=== PATIENT | male | born 1995 | race Caucasian/White ===

== ENCOUNTER 2023-12-23 23:03 | Emergency (ER) | payer MEDICAID ==
[~2023-12-23] VITALS: Ht 167.6 cm; Wt 69.9 kg
[2023-12-23 23:18] VITALS: O2SAT 96
[2023-12-23] MEDS ORDERED: LIDOCAINE 2%-EPI 1:100,000 20 ML VIAL ONE (23:54)
[2023-12-24] MEDS: LIDOCAINE 2%-EPI 1:100,000 20 ML VIAL IJ ONE (00:10)
[2023-12-24] MEDS ORDERED: BACITRACIN ZINC OINT 15 GM TUBE ONE (01:39)
[2023-12-24] MEDS: NEOMY/BACITRA/POLYMYXIN B OINT UD PACKET TP ONE (01:40)
== END 2023-12-24 02:10 | disposition home or self-care (01) ==
LOC: ER 23:13
DX: S01.81XA Laceration without foreign body of other part of head, initial encounter (principal); W21.00XA Struck by hit or thrown ball, unspecified type, initial encounter; Y93.89 Activity, other specified; Y92.89 Other specified places as the place of occurrence of the external cause; Y99.8 Other external cause status
CPT/HCPCS: A4606; A4663

== ENCOUNTER 2024-01-05 19:20 | Emergency (ER) | payer MEDICAID ==
[~2024-01-05] VITALS: Ht 167.6 cm; Wt 69.9 kg
[2024-01-05 19:55] VITALS: BP 120/69; O2SAT 98
== END 2024-01-05 19:58 | disposition home or self-care (01) ==
LOC: ER 19:20
DX: S01.81XD Laceration without foreign body of other part of head, subsequent encounter (principal); Z88.7 Allergy status to serum and vaccine; X58.XXXD Exposure to other specified factors, subsequent encounter
CPT/HCPCS: A4606; A4663